=== PATIENT | female | born 1940 | race Caucasian/White ===

== ENCOUNTER 2023-07-21 18:49 | Inpatient (IN) | payer OTHER, MEDICAID ==
[~2023-07-21] VITALS: Ht 144.8 cm; Wt 77.7 kg
[~2023-07-21 18:49] MED LIST: AMLO5TAB92 PO; APIX2.5T PO; ASPI-1393 PO; BUME2TAB7 PO; CARV6.2554 PO; FER300L PO; FOLI1CAP PO; HYDR-4039 PO; INSU100V44; INSU100V53 SQ; REN800 PO; ROSU10TA29 PO; ZINC100T2 PO
[2023-07-21 19:20] VITALS: BP_SYST 177; PULSE 84; TEMP 98.4; O2SAT 91
[2023-07-21 20:30] LABS: BASOPHILS # (AUTO) 0.1 K/uL (0.0-0.2); BASOPHILS % (AUTO) 1.2 % (0.0-2.0); EOSINOPHILS # (AUTO) 0.6 K/uL (0.0-0.4); HEMATOCRIT 34.4 % (36-48); HEMOGLOBIN 11.4 g/dL (12.0-16.0); LYMPHOCYTES # (AUTO) 1.4 K/uL (1.0-5.5); LYMPHOCYTES % (AUTO) 15.6 % (20.5-51.5); MEAN CORPUSCULAR HEMOGLOBIN 30 pg (27-31); MEAN CORPUSCULAR HGB CONC 33 % (32-36); MEAN CORPUSCULAR VOLUME 90 fL (79.0-98.0); MONOCYTES # (AUTO) 0.7 K/uL (0.0-1.0); MONOCYTES % (AUTO) 7.7 % (1.7-9.3); NEUTROPHILS # (AUTO) 6.5 K/uL (1.8-7.7); NEUTROPHILS % (AUTO) 69.5 % (40.0-70.0); PLATELET COUNT (AUTO) 195 K/uL (130-430); RED BLOOD CELL COUNT(AUTO) 3.81 MIL/uL (4.2-6.2); RED CELL DISTRIBUTION WIDTH 16.1 % (9.0-15.0); WHITE BLOOD COUNT (AUTO) 9.3 K/uL (4.8-10.8)
[2023-07-21 20:37] LABS: ANION GAP 10 (5-15); CALCIUM 8.3 mg/dL (8.4-11.0); CARBON DIOXIDE 30 mmol/L (23-29); CHLORIDE 101 mmol/L (98-107); CREATININE 3.61 mg/dL (0.55-1.30); GLUCOSE 213 mg/dL (74-106); POTASSIUM 3.7 mmol/L (3.5-5.1); SODIUM SERUM 141 mmol/L (136-145); UREA NITROGEN, BLOOD 25 mg/dL (8-21)
[2023-07-21 20:41] LABS: INR 1.1 (0.8-1.2); PROTHROMBIN TIME 11.4 SECS (9.5-12.5)
[2023-07-21] MEDS ORDERED: HEPARIN 25,000 UNITS/D5W 250ML 250 ML IV ONE (20:45)
[2023-07-21] MEDS ORDERED: *HEPARIN PER PHARMACY XX ONE (21:15)
[2023-07-21] MEDS ORDERED: DICL100G60 TP (21:28)
[2023-07-21] MEDS ORDERED: ISOS30TA85 PO (21:28)
[2023-07-21] MEDS ORDERED: CARB15DR93 EACH EAR (21:28)
[2023-07-21] MEDS ORDERED: ALBMDI INH (21:28)
[2023-07-21] MEDS ORDERED: ESCI-6 PO (21:28)
[2023-07-21] MEDS ORDERED: NIFE-75 PO (21:28)
[2023-07-21] MEDS ORDERED: HYDR-3917 PO (21:28)
[2023-07-21] MEDS ORDERED: TRIAMCINOLONE (21:28)
[2023-07-21] MEDS ORDERED: TRAZ-250 PO (21:28)
[2023-07-21] MEDS ORDERED: VALA10002 PO (21:28)
[2023-07-21] MEDS ORDERED: BENZ100C92 PO (21:28)
[2023-07-21] MEDS ORDERED: HEPARIN SODIUM,PORCINE 2000 UNITS/0.4 ML BOLUS IVP PRN (21:30)
[2023-07-21] MEDS ORDERED: HEPARIN SODIUM,PORCINE 3000 UNITS/0.6 ML BOLUS IVP PRN (21:30)
[2023-07-21] MEDS ORDERED: HEPARIN SODIUM,PORCINE 5,000 UNITS/ML VIAL IVP ONE (21:30)
[2023-07-21] MEDS: HEPARIN 25,000 UNITS in 250 ML PREMIX IV PRN (21:49)
[2023-07-22] VITALS (8 sets, daily range): BP systolic 145–176; PULSE 77–87; RESP 16–20; TEMP 97.2–98.1; O2SAT 92–98
[2023-07-22] MEDS ORDERED: traZODone HCL 50 MG TABLET (DESYREL) PO ONE (03:15)
[2023-07-22] MEDS ORDERED: hydrALAZINE HCL 25 MG TABLET ONE (04:33)
[2023-07-22] MEDS: CARVEDILOL 6.25 MG TABLET (COREG) PO SCH ×2 (04:39→20:53)
[2023-07-22] MEDS: hydrALAZINE HCL 25 MG TABLET PO SCH ×3 (04:41→21:13)
[2023-07-22 04:45] LABS: INR 1.2 (0.8-1.2); PROTHROMBIN TIME 11.9 SECS (9.5-12.5)
[2023-07-22] MEDS: HEPARIN 25,000 UNITS in 250 ML PREMIX IV PRN ×2 (04:55→12:04)
[2023-07-22] MEDS: NIFEdipine 30 MG TAB.ER.24 PO SCH (09:22)
[2023-07-22] MEDS: ISOSORBIDE DINITRATE 20 MG TABLET (ISORDIL) PO SCH (09:22)
[2023-07-22] MEDS: amLODIPine BESYLATE 5 MG TABLET PO SCH (09:23)
[2023-07-22] MEDS ORDERED: NALOXONE HCL 0.4 MG/ML AMP (NARCAN) IVP PRN ×2 (09:45)
[2023-07-22] MEDS ORDERED: ACETAMINOPHEN 325 MG TABLET PO PRN (09:45)
[2023-07-22] MEDS ORDERED: HYDROcodone/ACETAMIN 5-325 MG TAB (NORCO/ VICODIN) PO PRN (09:45)
[2023-07-22] MEDS ORDERED: LORazepam 2 MG/ML VIAL IVP PRN (09:45)
[2023-07-22] MEDS ORDERED: ALBUTEROL SULFATE 0.083% 2.5 MG/3 ML VIAL.NEB INH PRN (09:45)
[2023-07-22] MEDS ORDERED: ONDANSETRON HCL 4 MG/2 ML VIAL IVP PRN (09:45)
[2023-07-22] MEDS ORDERED: HYDROcodone/ACETAMIN 10-325 MG TAB PO PRN (09:45)
[2023-07-22] MEDS ORDERED: CITALOPRAM HYDROBROMIDE 20 MG TABLET PO ONE (10:00)
[2023-07-22] MEDS ORDERED: INSULIN GLARGINE 100 UNITS/ML, 10 ML VIAL SQ ONE (10:00)
[2023-07-22] MEDS ORDERED: ASPIRIN 81 MG TABLET(ECOTRIN) PO ONE (10:00)
[2023-07-22 11:14] LABS: BASOPHILS # (AUTO) 0.1 K/uL (0.0-0.2); EOSINOPHILS # (AUTO) 0.3 K/uL (0.0-0.4); EOSINOPHILS % (AUTO) 3.7 % (0.0-4.0); HEMATOCRIT 30.2 % (36-48); LYMPHOCYTES # (AUTO) 1.1 K/uL (1.0-5.5); LYMPHOCYTES % (AUTO) 11.6 % (20.5-51.5); MEAN CORPUSCULAR HEMOGLOBIN 30 pg (27-31); MEAN CORPUSCULAR HGB CONC 33 % (32-36); MEAN CORPUSCULAR VOLUME 91 fL (79.0-98.0); MONOCYTES # (AUTO) 0.6 K/uL (0.0-1.0); MONOCYTES % (AUTO) 6.7 % (1.7-9.3); NEUTROPHILS # (AUTO) 7.1 K/uL (1.8-7.7); PLATELET COUNT (AUTO) 171 K/uL (130-430); RED BLOOD CELL COUNT(AUTO) 3.33 MIL/uL (4.2-6.2); RED CELL DISTRIBUTION WIDTH 16.2 % (9.0-15.0); WHITE BLOOD COUNT (AUTO) 9.2 K/uL (4.8-10.8)
[2023-07-22 12:05] LABS: ALANINE AMINOTRANSFERASE 17 U/L (12-78); ALBUMIN 2.9 g/dL (3.4-4.8); ANION GAP 10 (5-15); ASPARTATE AMINOTRANSFERASE 17 U/L (10-37); CALCIUM 7.8 mg/dL (8.4-11.0); CARBON DIOXIDE 29 mmol/L (23-29); CHLORIDE 102 mmol/L (98-107); CREATININE 3.79 mg/dL (0.55-1.30); GLUCOSE 266 mg/dL (74-106); POTASSIUM 3.9 mmol/L (3.5-5.1); SODIUM SERUM 141 mmol/L (136-145); TOTAL BILIRUBIN 0.4 mg/dL (0.0-1.0); TOTAL PROTEIN, SERUM 6.5 g/dL (6.4-8.3); UREA NITROGEN, BLOOD 29 mg/dL (8-21)
[2023-07-22] MEDS: INSULIN REGULAR, HUMAN 100 UNITS/ML, 3 ML VIAL (humuLIN R) SUBCUT PRN ×2 (12:59→21:11)
[2023-07-22] MEDS: NORMAL SALINE 5 ML DISP.SYRIN IVF SCH ×2 (14:40→21:09)
[2023-07-22] MEDS: BENZONATATE 100 MG CAPSULE (TESSALON) PO SCH ×2 (14:43→20:54)
[2023-07-22] MEDS ORDERED: BUMETANIDE 1 MG TABLET PO SCH ×2 (21:00)
[2023-07-22] MEDS ORDERED: NON-FORMULARY MEDICATION (Rosuvastatin Calcium 1 TAB) PO SCH (21:00)
[2023-07-22] MEDS: APIXABAN 2.5 MG TABLET PO SCH (21:00)
[2023-07-22] MEDS ORDERED: ATORVASTATIN 20 MG TABLET PO SCH (21:00)
[2023-07-22] MEDS ORDERED: CARBAMIDE PEROXIDE 6.5% EAR DROPS (DEBROX) OT SCH (21:00)
[2023-07-22] MEDS ORDERED: traZODone HCL 50 MG TABLET (DESYREL) PO SCH (21:00)
[2023-07-22] MEDS ORDERED: guaiFENesin 200 MG/CODEINE 20 MG/ 10 ML UDC PO PRN (21:30)
[2023-07-23] VITALS (7 sets, daily range): BP systolic 126–154; PULSE 58–106; RESP 16–18; TEMP 97–98; O2SAT 93–100
[2023-07-23] MEDS ORDERED: IPRATROPIUM/ALBUTEROL SULFATE 3 ML AMPUL.NEB (DUONEB) INH SCH (03:00)
[2023-07-23 06:24] LABS: BASOPHILS # (AUTO) 0.1 K/uL (0.0-0.2); BASOPHILS % (AUTO) 1.2 % (0.0-2.0); EOSINOPHILS # (AUTO) 0.3 K/uL (0.0-0.4); EOSINOPHILS % (AUTO) 3.6 % (0.0-4.0); HEMATOCRIT 33.2 % (36-48); HEMOGLOBIN 11.2 g/dL (12.0-16.0); LYMPHOCYTES # (AUTO) 1.3 K/uL (1.0-5.5); LYMPHOCYTES % (AUTO) 15.6 % (20.5-51.5); MEAN CORPUSCULAR HEMOGLOBIN 30 pg (27-31); MEAN CORPUSCULAR HGB CONC 34 % (32-36); MEAN CORPUSCULAR VOLUME 90 fL (79.0-98.0); MONOCYTES # (AUTO) 0.6 K/uL (0.0-1.0); MONOCYTES % (AUTO) 7.7 % (1.7-9.3); NEUTROPHILS # (AUTO) 5.9 K/uL (1.8-7.7); NEUTROPHILS % (AUTO) 71.9 % (40.0-70.0); PLATELET COUNT (AUTO) 167 K/uL (130-430); RED CELL DISTRIBUTION WIDTH 16.2 % (9.0-15.0); WHITE BLOOD COUNT (AUTO) 8.2 K/uL (4.8-10.8)
[2023-07-23] MEDS: NORMAL SALINE 5 ML DISP.SYRIN IVF SCH ×2 (06:41→16:14)
[2023-07-23] MEDS: hydrALAZINE HCL 25 MG TABLET PO SCH ×2 (06:42→16:14)
[2023-07-23] MEDS ORDERED: D5W 1,000 ML IV PRN (06:45)
[2023-07-23] MEDS ORDERED: GLUCOSE (DEXTROSE) ORAL GEL -Adults PO PRN (06:45)
[2023-07-23] MEDS ORDERED: DEXTROSE 50% JECT 50 ML DISP.SYRIN IVP PRN (06:45)
[2023-07-23] MEDS ORDERED: DEXTROSE 50% JECT 50 ML DISP.SYRIN ONE (06:48)
[2023-07-23 07:23] LABS: ANION GAP 11 (5-15); CALCIUM 7.7 mg/dL (8.4-11.0); CARBON DIOXIDE 26 mmol/L (23-29); CHLORIDE 102 mmol/L (98-107); CREATININE 2.73 mg/dL (0.55-1.30); PHOSPHORUS 3.5 mg/dL (2.7-4.5); SODIUM SERUM 139 mmol/L (136-145); UREA NITROGEN, BLOOD 20 mg/dL (8-21)
[2023-07-23 07:53] LABS: GLUCOSE 35 mg/dL (74-106)
[2023-07-23] MEDS ORDERED: INSULIN GLARGINE 100 UNITS/ML, 10 ML VIAL SQ SCH (09:00)
[2023-07-23] MEDS ORDERED: CITALOPRAM HYDROBROMIDE 20 MG TABLET PO SCH (09:00)
[2023-07-23] MEDS ORDERED: ASPIRIN 81 MG TABLET(ECOTRIN) PO SCH (09:00)
[2023-07-23] MEDS: ISOSORBIDE DINITRATE 20 MG TABLET (ISORDIL) PO SCH (10:01)
[2023-07-23] MEDS: NIFEdipine 30 MG TAB.ER.24 PO SCH (10:02)
[2023-07-23] MEDS: CARVEDILOL 6.25 MG TABLET (COREG) PO SCH (10:03)
[2023-07-23] MEDS: amLODIPine BESYLATE 5 MG TABLET PO SCH (10:04)
[2023-07-23] MEDS: BENZONATATE 100 MG CAPSULE (TESSALON) PO SCH ×2 (10:05→15:00)
[2023-07-23] MEDS: APIXABAN 2.5 MG TABLET PO SCH (10:09)
[2023-07-23] MEDS ORDERED: HEPARIN SODIUM, PORCINE 10,000 UNITS/ 10 ML VIAL MC ONE (14:00)
[2023-07-23] MEDS ORDERED: HEPARIN SODIUM,PORCINE 5,000 UNITS/ML VIAL MC ONE (14:15)
== END 2023-07-23 20:00 | disposition home or self-care (01) | DRG 314 ==
LOC: SED 18:49 → STU 21:01
PROVIDERS: ADMIT Preventive Medicine Preventive Medicine/Occupational Environmental Medicine; ATTEND Preventive Medicine Preventive Medicine/Occupational Environmental Medicine
PROC: 5A1D70Z Performance of Urinary Filtration, Intermittent, Less than 6 Hours Per Day (ICD-10-PCS; principal; 2023-07-22)
PROC: 5A1D70Z Performance of Urinary Filtration, Intermittent, Less than 6 Hours Per Day (ICD-10-PCS; 2023-07-23)
DX: T82.868A Thrombosis due to vascular prosthetic devices, implants and grafts, initial encounter (principal); N18.6 End stage renal disease; I82.C11 Acute embolism and thrombosis of right internal jugular vein; I13.2 Hypertensive heart and chronic kidney disease with heart failure and with stage 5 chronic kidney disease, or end stage renal disease; I82.B21 Chronic embolism and thrombosis of right subclavian vein; E78.5 Hyperlipidemia, unspecified; D63.1 Anemia in chronic kidney disease; E83.52 Hypercalcemia; E11.65 Type 2 diabetes mellitus with hyperglycemia; E11.649 Type 2 diabetes mellitus with hypoglycemia without coma; E11.22 Type 2 diabetes mellitus with diabetic chronic kidney disease; I50.9 Heart failure, unspecified; Z88.8 Allergy status to other drugs, medicaments and biological substances; Z91.041 Radiographic dye allergy status; Z79.01 Long term (current) use of anticoagulants
CPT/HCPCS: 36415; 71045; 80048; 80053; 82962; 83735; 84100; 85025; 85610-TC; 85730-TC; 87081; 90935; 90937; 94640; 94760; 96374; 99285; G0378; J1644; J1815

== ENCOUNTER 2024-02-13 04:56 | Inpatient (IN) | payer OTHER, MEDICAID ==
[~2024-02-13] VITALS: Ht 152.4 cm; Wt 72.6 kg
[2024-02-13] VITALS (7 sets, daily range): BP systolic 104–154; PULSE 50–84; RESP 15–20; TEMP 95.1–98.4; O2SAT 75–98
[~2024-02-13 04:56] MED LIST changes: +ALBMDI INH; +BENZ100C92 PO; +CARB15DR93 EACH EAR; +DICL100G60 TP; +ESCI-6 PO; -FER300L PO; -FOLI1CAP PO; +HYDR-3917 PO; -HYDR-4039 PO; +HYDR50TA44 PO; -INSU100V44; +ISOS30TA85 PO; +NIFE-75 PO; -REN800 PO; -ROSU10TA29 PO; +ROSU10TA72 PO; +TRAZ-250 PO; +TRIAMCINOLONE; +VALA10002 PO; -ZINC100T2 PO
[2024-02-13 05:35] LABS: BASOPHILS # (AUTO) 0.1 K/uL (0.0-0.2); BASOPHILS % (AUTO) 0.5 % (0.0-2.0); EOSINOPHILS # (AUTO) 0.2 K/uL (0.0-0.4); EOSINOPHILS % (AUTO) 1.4 % (0.0-4.0); HEMATOCRIT 35.3 % (36-48); HEMOGLOBIN 11.4 g/dL (12.0-16.0); LYMPHOCYTES # (AUTO) 1.3 K/uL (1.0-5.5); LYMPHOCYTES % (AUTO) 11.1 % (20.5-51.5); MEAN CORPUSCULAR HEMOGLOBIN 29 pg (27-31); MEAN CORPUSCULAR HGB CONC 32 % (32-36); MEAN CORPUSCULAR VOLUME 90 fL (79.0-98.0); MONOCYTES # (AUTO) 0.6 K/uL (0.0-1.0); MONOCYTES % (AUTO) 5.5 % (1.7-9.3); NEUTROPHILS # (AUTO) 9.5 K/uL (1.8-7.7); NEUTROPHILS % (AUTO) 81.5 % (40.0-70.0); PLATELET COUNT (AUTO) 180 K/uL (130-430); RED BLOOD CELL COUNT(AUTO) 3.91 MIL/uL (4.2-6.2); RED CELL DISTRIBUTION WIDTH 16.6 % (9.0-15.0); WHITE BLOOD COUNT (AUTO) 11.7 K/uL (4.8-10.8)
[2024-02-13] MEDS: MORPHINE 2 MG/ML INJ. SYRINGE IVP ONE ×2 (05:38→11:59)
[2024-02-13 05:54] LABS: INR 1.3 (0.8-1.2); PROTHROMBIN TIME 13.1 SECS (9.5-12.5)
[2024-02-13 05:56] LABS: ANION GAP 8 (5-15); CALCIUM 8.6 mg/dL (8.4-11.0); CARBON DIOXIDE 31 mmol/L (23-29); CHLORIDE 100 mmol/L (98-107); CREATININE 3.75 mg/dL (0.55-1.30); GLUCOSE 141 mg/dL (74-106); POTASSIUM 4.3 mmol/L (3.5-5.1); SODIUM SERUM 139 mmol/L (136-145); UREA NITROGEN, BLOOD 37 mg/dL (8-21)
[2024-02-13] MEDS: fentaNYL CITRATE/PF 100 MCG/2 ML AMP IVP ONE (07:41)
[2024-02-13] MEDS: MORPHINE 2 MG/ML INJ. SYRINGE IVP PRN (09:28)
[2024-02-13] MEDS ORDERED: ALBUTEROL SULFATE 0.083% 2.5 MG/3 ML VIAL.NEB INH PRN (11:00)
[2024-02-13] MEDS: HEPARIN SODIUM,PORCINE 5,000 UNITS/ML VIAL MC PRN (17:48)
[2024-02-14 00:36] VITALS: BP_SYST 117; PULSE 85; RESP 18; TEMP 97.8; O2SAT 96
[2024-02-14 04:18] LABS: BASOPHILS # (AUTO) 0.1 K/uL (0.0-0.2); BASOPHILS % (AUTO) 0.6 % (0.0-2.0); EOSINOPHILS # (AUTO) 0.2 K/uL (0.0-0.4); EOSINOPHILS % (AUTO) 2.2 % (0.0-4.0); HEMATOCRIT 27.3 % (36-48); HEMOGLOBIN 8.8 g/dL (12.0-16.0); LYMPHOCYTES # (AUTO) 0.9 K/uL (1.0-5.5); LYMPHOCYTES % (AUTO) 9.3 % (20.5-51.5); MEAN CORPUSCULAR HEMOGLOBIN 30 pg (27-31); MEAN CORPUSCULAR HGB CONC 32 % (32-36); MEAN CORPUSCULAR VOLUME 91 fL (79.0-98.0); MONOCYTES # (AUTO) 0.8 K/uL (0.0-1.0); MONOCYTES % (AUTO) 8.7 % (1.7-9.3); NEUTROPHILS # (AUTO) 7.4 K/uL (1.8-7.7); NEUTROPHILS % (AUTO) 79.2 % (40.0-70.0); PLATELET COUNT (AUTO) 137 K/uL (130-430); RED BLOOD CELL COUNT(AUTO) 2.99 MIL/uL (4.2-6.2); RED CELL DISTRIBUTION WIDTH 16.6 % (9.0-15.0); WHITE BLOOD COUNT (AUTO) 9.3 K/uL (4.8-10.8)
[2024-02-14 04:40] LABS: ANION GAP 7 (5-15); CALCIUM 8.2 mg/dL (8.4-11.0); CARBON DIOXIDE 30 mmol/L (23-29); CHLORIDE 100 mmol/L (98-107); CREATININE 2.99 mg/dL (0.55-1.30); GLUCOSE 129 mg/dL (74-106); POTASSIUM 4.6 mmol/L (3.5-5.1); SODIUM SERUM 137 mmol/L (136-145); UREA NITROGEN, BLOOD 24 mg/dL (8-21)
[2024-02-14 07:46] VITALS: BP_SYST 150; PULSE 89; RESP 16; TEMP 97.4; O2SAT 98
[2024-02-14 10:00] VITALS: O2SAT 98
[2024-02-14] MEDS ORDERED: HYDROcodone/ACETAMIN 5-325 MG TAB (NORCO/ VICODIN) PO SCH (11:30)
[2024-02-14] MEDS: HYDROcodone/ACETAMIN 5-325 MG TAB (NORCO/ VICODIN) PO SCH (12:45)
[2024-02-14] MEDS ORDERED: NALOXONE HCL 0.4 MG/ML AMP (NARCAN) IVP PRN (12:45)
[2024-02-14 15:06] VITALS: BP_SYST 96; PULSE 89; RESP 16; TEMP 97.6; O2SAT 100
[2024-02-14 21:00] VITALS: BP_SYST 113; PULSE 84; RESP 20; TEMP 97.2; O2SAT 98
[2024-02-14] MEDS: INSULIN REGULAR, HUMAN 100 UNITS/ML, 3 ML VIAL (humuLIN R) SUBCUT PRN (21:14)
[2024-02-15 00:37] VITALS: BP_SYST 156; PULSE 91; RESP 17; TEMP 97.6; O2SAT 95
[2024-02-15 08:00] VITALS: BP_SYST 121; PULSE 80; RESP 14; TEMP 97.3; O2SAT 94; O2SAT 95
[2024-02-15 12:56] VITALS: BP_SYST 140; PULSE 84; RESP 14; TEMP 98.1; O2SAT 99
[2024-02-15 16:30] VITALS: BP_SYST 177; PULSE 89; RESP 18; TEMP 98; O2SAT 98
[2024-02-15 17:30] VITALS: BP_SYST 168; PULSE 84
[2024-02-15] MEDS: METOPROLOL TARTRATE 25 MG TABLET PO SCH (20:52)
[2024-02-15 21:00] VITALS: BP_SYST 159; PULSE 84; RESP 20; TEMP 97.8; O2SAT 100
[2024-02-16 00:48] VITALS: BP_SYST 165; PULSE 73; RESP 17; TEMP 97.5; O2SAT 93
[2024-02-16 08:00] VITALS: BP_SYST 133; PULSE 82; RESP 14; O2SAT 92; O2SAT 98
[2024-02-16 11:38] VITALS: BP_SYST 114; PULSE 76; RESP 16; TEMP 97.9; O2SAT 96
[2024-02-16] MEDS ORDERED: cloNIDine HCL 0.2 MG TABLET PO PRN (12:30)
[2024-02-16 14:19] VITALS: BP_SYST 131; PULSE 72; RESP 16; TEMP 98.7; O2SAT 96
[2024-02-16 15:20] VITALS: BP_SYST 131; PULSE 71; RESP 16; TEMP 97.4; O2SAT 93
[2024-02-16 16:03] VITALS: BP_SYST 131; PULSE 71
== END 2024-02-16 15:45 | disposition home health service (06) | DRG 562 ==
LOC: SED 04:56 → SMU 08:37
PROVIDERS: ADMIT Specialist; ATTEND Specialist
PROC: 5A1D70Z Performance of Urinary Filtration, Intermittent, Less than 6 Hours Per Day (ICD-10-PCS; principal; 2024-02-13)
PROC: 5A1D70Z Performance of Urinary Filtration, Intermittent, Less than 6 Hours Per Day (ICD-10-PCS; 2024-02-15)
DX: S42.292A Other displaced fracture of upper end of left humerus, initial encounter for closed fracture (principal); G93.41 Metabolic encephalopathy; N18.6 End stage renal disease; J90 Pleural effusion, not elsewhere classified; E87.3 Alkalosis; I13.2 Hypertensive heart and chronic kidney disease with heart failure and with stage 5 chronic kidney disease, or end stage renal disease; I50.22 Chronic systolic (congestive) heart failure; I42.9 Cardiomyopathy, unspecified; D63.1 Anemia in chronic kidney disease; W06.XXXA Fall from bed, initial encounter; Y93.89 Activity, other specified; Y99.8 Other external cause status; Y92.003 Bedroom of unspecified non-institutional (private) residence as the place of occurrence of the external cause; Z79.899 Other long term (current) drug therapy; Z86.718 Personal history of other venous thrombosis and embolism; Z79.01 Long term (current) use of anticoagulants; Z95.0 Presence of cardiac pacemaker; S40.022A Contusion of left upper arm, initial encounter
CPT/HCPCS: 36415; 70450-TC; 70486; 71045; 71250-TC; 72125-TC; 72128; 73030; 73060; 80048; 82948; 83880; 84484; 85025; 85610; 85730; 87081; 90935; 93005; 93306; 94070; 97110-GP; 97112-GO; 97112-GP; 97116-GP; 97530-GO; 97530-GP; 99291; J1644; J1815; J2270; J3010